=== PATIENT | male | born 1995 | race Caucasian/White ===

== ENCOUNTER 2019-02-09 23:03 | Emergency (ER) | payer OTHER ==
[~2019-02-09] VITALS: Ht 167.6 cm; Wt 86.4 kg
[2019-02-09 23:04] VITALS: BP 140/83
[2019-02-09] MEDS ORDERED: NORCO, ANEXSIA 5/325MG TABLET (HYDROcodone/ACETAMINOPHEN) PO ONE (23:30)
[2019-02-09] MEDS ORDERED: GABAPENTIN 100 MG CAP PO ONE (23:30)
[2019-02-09] MEDS ORDERED: NS 1,000 ML IV ONE (23:45)
[2019-02-10 00:30] LABS: BASO # 0.1 10^3/uL (0.0-0.2); BASO % 0.9 % (0.0-1.0); EOS # 0.4 10^3/uL (0.0-0.5); EOS % 4.2 % (0.0-3.0); HEMATOCRIT 46.6 % (42.0-52.0); HEMOGLOBIN 15.7 g/dl (13.5-17.5); LYMPH # 3.3 10^3/uL (1.5-5.0); LYMPH % 32.5 % (24.0-44.0); MEAN CORPUSCULAR HEMOGLOBIN 30.8 pg (27.0-33.0); MEAN CORPUSCULAR HGB CONC 33.7 g/dl (32.0-36.5); MEAN CORPUSCULAR VOLUME 91.6 fl (80.0-96.0); MONO # 1.1 10^3/uL (0.0-0.8); MONO % 10.6 % (0.0-5.0); NEUTROPHILS # 5.3 10^3/uL (1.5-8.5); NEUTROPHILS % 51.7 % (36.0-66.0); PLATELET COUNT, AUTOMATED 286 10^3/uL (150-450); RED BLOOD COUNT 5.09 10^6/uL (4.30-6.10); WHITE BLOOD COUNT 10.2 10^3/uL (4.0-10.0)
[2019-02-10 01:00] LABS: CPK CREATINE PHOSPHOKINASE 116 U/L (39-308)
[2019-02-10] MEDS ORDERED: METHOCARBAMOL 1,000 MG/10 ML VIAL (J2800) IV ONE (01:30)
[2019-02-10 01:40] LABS: CK-MB VALUE MASS 1.9 NG/ML (<3.6); MB/CK RELATIVE INDEX 1.64 (< OR =4); TROPONIN I < 0.02 NG/ML (< 0.10)
[2019-02-10] MEDS ORDERED: ROBA750T4 PO (02:16)
[2019-02-10] MEDS ORDERED: NAPR-837 PO (02:19)
--- NOTE | 2019-02-10 02:34 | REPVR ---
PROCEDURE INFORMATION: Exam: US Duplex Left Upper Extremity Veins, Limited Exam date and time: 02/10/19 (1:58am) Age: 23 years old Clinical history: Left arm pain, out of proportion to examination TECHNIQUE: Imaging protocol: Real-time Duplex ultrasound of the Left Upper Extremity with 2-D anaya scale, color Doppler flow and spectral waveform analysis with image documentation. Limited examination focused on the left upper extremity veins. COMPARISON: No relevant prior studies available FINDINGS: Left deep veins: Unremarkable. Axillary and brachial veins are patent throughout without thrombus. Normal Doppler waveforms. Normal compressibility and/or augmentation response. Visualized internal jugular and subclavian veins are patent. Left superficial veins: Unremarkable. Visualized cephalic and basilic veins are patent without thrombus. Soft tissues: Unremarkable. IMPRESSION: No acute findings. No evidence of venous thrombosis. Electronically signed by: Lisset Nance On 02/10/2019 02:33:55 AM
--- NOTE | 2019-02-10 03:18 | REP ---
Clinical: Pain. Technique: AP and lateral views of the left humerus. Findings: No acute fracture dislocation. Skeletal structures, joint spaces, and surrounding soft tissues are normal. Impression: Normal left forearm radiographs. Electronically Signed by Naveed Chavez MD 02/10/2019 03:08 A
--- NOTE | 2019-02-10 03:19 | REP ---
Clinical: Severe pain with recent Trauma. Technique: AP, lateral views of the left wrist. Findings: The carpal bones, surrounding osseous structures, soft tissues, and joint spaces are normal. There is no evidence for acute fracture or dislocation. No subcutaneous emphysema or radiodense foreign body. Impression: Normal wrist series. No acute fracture or dislocation Electronically Signed by Naveed Chavez MD 02/10/2019 03:10 A
--- NOTE | 2019-02-10 03:19 | REP ---
Clinical: Pain with recent trauma . Technique: AP, lateral, bilateral oblique views of the left elbow. Findings: No acute fracture or dislocation is appreciated. Joint spaces and surrounding soft tissues appear normal. Lateral view demonstrates normal positioning to the anterior and posterior fat pads without evidence for effusion/hemarthrosis. No subcutaneous emphysema or foreign body identified. Impression: Normal left elbow radiographs. Electronically Signed by Naveed Chavez MD 02/10/2019 03:11 A
--- NOTE | 2019-02-10 15:03 | ECGEPIP ---
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
== END 2019-02-10 02:33 | disposition home or self-care (01) ==
LOC: M ED 23:03
DX: M79.602 Pain in left arm (principal)
CPT/HCPCS: 73060; 73080; 73100; 80047; 82550; 82553; 84484; 85025; 93005; 93971; 96361; 96374; 99284; J2800